=== PATIENT | male | born 1990 | race Caucasian/White ===

== ENCOUNTER 2017-11-18 05:59 | Emergency (ER) | payer BC, SELFPAY ==
[2017-11-18 06:01] VITALS: BP 127/73; RESP 16; TEMP 36.8; O2SAT 97; BMI 34.4
--- NOTE | 2017-11-18 07:07 | ED.VISSUMM ---
- ER Visit Summary Date of Service: 11/18/17 Chief Complaint: Eye pain History of Present Illness: The patient is a 26 M has bilateral eye pain. Started yesterday. He noted some redness. He has some cloudy vision of both eyes to. He started wearing contact lenses last week. He has them out at this time. He denies any fever. No crusting of the eyes. He has no injuries. Physical Examination: Vital signs reviewed. Bilateral eye exam reveals diffuse injection. Extraocular motions are intact without pain. His pupils are equally round and reactive. Funduscopic exam is normal. Test Results: None indicated Emergency Department Course and Treatment: Tetracaine and fluorescein was instilled in each eye. There was no dye uptake. There are no ulcers. Patient looks like to have conjunctivitis of each eye. Treatment Plan: He will be given erythromycin ophthalmic for each eye. 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 It may contain incorrect words, spelling, and punctuation that were not noted in review of the chart prior to signing ED Disposition - Plan for ED Patient: Chief Complaint: Eye Problem Referrals: Care Physician,No Primary [Primary Care Provider] -
--- NOTE | 2017-11-18 07:08 | ED.DEP ---
ED Disposition - Plan for ED Patient: Disposition: Home or Assisted Living Chief Complaint: Eye Problem Instructions: ED Conjunctivitis Bacterial Prescriptions: Erythromycin Ophthalmic 1 applic EACH EYE 4X/DAY #1 opth.tube Referrals: Care Physician,No Primary [Primary Care Provider] -
[2017-11-18] MEDS: Erythromycin Base 1 OPTH.TUBE 1 APPLIC EACH EYE (07:42)
[2017-11-18 07:44] VITALS: RESP 18; O2SAT 98
== END 2017-11-18 07:45 | disposition home or self-care (01) ==
PROVIDERS: Emergency Provider Emergency Medicine
DX: H10.89 Other conjunctivitis (principal); Z72.0 Tobacco use
CPT/HCPCS: 99282

== ENCOUNTER 2018-01-22 08:33 | Emergency (ER) | payer BC, SELFPAY ==
[2018-01-22 08:34] VITALS: BP 138/87; PULSE 77; RESP 16; TEMP 36.7; O2SAT 100; BMI 35.5
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
[2018-01-22] MEDS: Naproxen 500 MG Tablet PO (08:52)
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
[2018-01-22 09:50] VITALS: PULSE 81; RESP 18; O2SAT 98
--- NOTE | 2018-01-22 09:50 | ED.RN ---
THIS NURSE REVIEWED D/C INSTRUCTIONS WITH PT. PT VERBALIZED UNDERSTANDING OF INSTRUCTIONS. PT DENIES FURTHER NEEDS OR QUESTIONS AT THIS TIME. PT AMBULATES FROM ROOM ON OWN WITHOUT ASSISTANCE FROM STAFF
== END 2018-01-22 09:52 | disposition home or self-care (01) ==
PROVIDERS: Emergency Provider Emergency Medicine
DX: S63.502A Unspecified sprain of left wrist, initial encounter (principal); S13.4XXA Sprain of ligaments of cervical spine, initial encounter; Z72.0 Tobacco use; V49.60XA Unspecified car occupant injured in collision with unspecified motor vehicles in traffic accident, initial encounter; Y93.I9 Activity, other involving external motion; Y92.410 Unspecified street and highway as the place of occurrence of the external cause; Y99.8 Other external cause status
CPT/HCPCS: 73110; 99285

== ENCOUNTER 2021-09-03 09:39 | Emergency (ER) | payer BC, SELFPAY ==
[2021-09-03 09:39] VITALS: BP 103/80; PULSE 143; RESP 18; TEMP 36.7; O2SAT 97; BMI 35.9
--- NOTE | 2021-09-03 10:17 | EX.ED.DYSGE1 ---
HPI History of Present Illness Chief Complaint: Allergic Reaction Narrative Narrative: Patient is a 30-year-old male who states on Friday he used a new body wash. He states Friday around 4 5 in the afternoon he noticed some mild redness and rash to his body. He states that the redness/rash has worsened since his onset and he had concerned that he may have difficulty breathing from this and therefore presents for evaluation. Other than the new body wash he denies any new exposures and states no one else at home has the rash. PFSH PFS Medical History (Updated 09/03/21 @ 10:[address] Bryon Thrasher, DO) Anxiety Depression Home Medications duloxetine 60 mg capsule,delayed release 60 mg PO DAILY #30 cap 10/17/18 [Rx Last Taken Unknown] famotidine [Pepcid] 40 mg PO DAILY #7 tab 09/03/21 [Rx Last Taken Unknown] omeprazole 40 mg PO DAILY 09/03/21 [History Last Taken Unknown] prednisone 40 mg PO DAILY #14 tab 09/03/21 [Rx Last Taken Unknown] Allergy/AdvReac Type Severity Reaction Status Date / Time No Known Allergies Allergy Verified 09/03/21 09:41 Family History Other Depression Social History (Updated 10/20/18 @ 12:59 by Leena Felix NP, TRANSFER SPECIALIST-C) Smoking Status: Never smoker ROS ROS ED Constitutional Constitutional ED: Denies chills or fever(s) ENT ENT ED: Denies sore throat Cardiovascular Cardiovascular: Denies chest pain Respiratory/Chest Respiratory/Chest: Denies cough or dyspnea Gastrointestinal Gastrointestinal: Denies abdominal pain, diarrhea, nausea or vomiting Genitourinary Genitourinary ED: Denies dysuria Musculoskeletal Musculoskeletal: Denies myalgias Integumentary Reports rash Neurologic Neurologic: Denies headache(s) Allergic/Immunologic Allergic/Immunologic ED: Reports urticaria; Denies mouth swelling or tongue swelling EXAM Physical Exam Const Vital Signs: 09/03/21 09:39 Temperature 98.1 F Temperature Source Temporal Pulse Rate 143 H Respiratory Rate 18 Blood Pressure 103/80 Blood Pressure Mean 87 Pulse Ox 97 Oxygen Delivery Method Room Air Positive well nourished and well developed General Appearance ED: well developed HEENT Reports moist mucous membranes HEENT Narrative: No tongue or lip swelling no oral lesions no airway edema or compromise Eyes PERRL and EOMs intact bilaterally Neck supple Resp normal respiratory effort Resp Narrative: Breath sounds are slightly diminished throughout with diffuse expiratory wheeze but no signs of respiratory distress Cardio Rate: other Other Details: Tachycardic rate with regular rhythm GI normal to inspection, nondistended, normoactive bowel sounds, non-tender, non-distended and no masses Auscultation: normoactive bowel sounds Palpation: soft Extremity normal to inspection Neuro oriented x3 and CN's II-XII intact bilaterally Sensorium / Orientation: alert Motor Exam: strength 5/5 throughout Psych Mood & Affect: anxious Skin Skin Narrative: Patient has blanchable urticarial lesions extending from the top of his head down to his feet consistent with allergic reaction and no secondary changes to suggest infection MDM MDM MDM Narrative Medical decision making narrative: Patient presented to the ER tachycardic but does state he has history of anxiety and is feeling anxious. Otherwise he was afebrile normotensive and in no acute respiratory distress. His history and exam is consistent with contact dermatitis most likely from the new body wash. At this time as his rash has been present for 24 hours and has not progressed airway compromise I do not feel there is need for epinephrine or further work-up in the ER. Patient will be placed on steroids and Pepcid to help with inflammatory control but as he is in no respiratory distress is safe for discharge. Discharge Plan Triage Chief Complaint: Allergic Reaction ED Provider: Bryon Thrasher Dx/Rx/DC Orders Clinical Impression: Allergic reaction Instructions: ED Allergic Reaction Local Other Prescriptions: New prednisone 20 mg tablet 40 mg PO DAILY Qty: 14 RF: 0 famotidine [Pepcid] 40 mg tablet 40 mg PO DAILY Qty: 7 RF: 0 No Action duloxetine 60 mg capsule,delayed release(DR/EC) 60 mg PO DAILY Qty: 30 RF: 12 omeprazole 40 mg capsule,delayed release(DR/EC) 40 mg PO DAILY RF: 0 Primary Care Provider: Care Physician,No Primary Referrals: Darien Calderón MD [STAFF PHYSICIAN] - 1 Week if not improving Care Physician,No Primary [Primary Care Provider] - Disposition Disposition: Home, Self Care
[2021-09-03] MEDS: predniSONE 20 MG Tablet 40 MG PO (10:28)
[2021-09-03] MEDS: Famotidine 20 MG Tablet 40 MG PO (10:28)
== END 2021-09-03 10:41 | disposition home or self-care (01) ==
LOC: ED 10:38
PROVIDERS: Emergency Provider Emergency Medicine; PCP Family Medicine
DX: L50.0 Allergic urticaria (principal); F41.9 Anxiety disorder, unspecified; F32.A Depression, unspecified; Z79.899 Other long term (current) drug therapy
CPT/HCPCS: 99283

== ENCOUNTER 2021-09-03 15:27 | Observation (INO) | payer BC, SELFPAY ==
[2021-09-03] VITALS (10 sets, daily range): BP systolic 104–150; BP diastolic 80–94; PULSE 79–142; RESP 14–25; TEMP 36.4–37; O2SAT 93–97; BMI 35.9; BMI 35.2
--- NOTE | 2021-09-03 15:47 | EKG12_ITS ---
Test Reason : Blood Pressure : / mmHG Vent. Rate : 098 BPM Atrial Rate : 098 BPM P-R Int : 132 ms QRS Dur : 074 ms QT Int : 332 ms P-R-T Axes : 050 019 022 degrees QTc Int : 423 ms Normal sinus rhythm Normal ECG Confirmed by LYLY GREGG, BILLY ([id number]), assignment desk editor CANDIDA TORRES ([id number]) on 09/05/2021 9:39:51 AM Referred By: Confirmed By:BILLY DESOUZA MD
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
[2021-09-03] MEDS: Albuterol 2.5 MG/3 ML VIAL.NEB. INHALATION ×2 (15:55→21:15)
[2021-09-03 16:05] LABS: Absolute Lymphocyte Count 1.95 X10^3/uL (0.83-4.51); Absolute Neutrophil Count 23.1 X10^3/uL (2.0-7.7); Basophil# 0.05 X10^3/uL; Basophil% 0.2 % (0-1); Eosinophil# 0.01 X10^3/uL; Hematocrit 53.2 % (40-54); Lymphocyte # 1.95 X10^3/ul (0.83-4.51); Lymphocyte % 7.5 % (19-41); Mean Corp Hgb Conc 33.8 g/dL (32-36); Mean Corpuscular Hgb 30.6 pg (27.0-32.0); Mean Corpuscular Volume 90.3 fL (80-94); Mean Platelet Vol. 10.8 fl (6.2-12.0); Monocyte# 0.68 X10^3/uL; Monocyte% 2.6 % (0-10); NRBC Flagged by Analyzer 0 % (0-5); Neutrophil # 23.13 X10^3/uL (2.7-7.7); Neutrophil % 88.7 % (47-70); POSITIVE DIFFERENTIAL YES; Platelet Count 415 K/mm3 (150-450); RBC Distribution Width CV 12.8 % (11.6-14.6); Red Blood Count 5.89 M/mm3 (4.6-6.2); White Blood Count 26.1 K/mm3 (4.4-11.0)
[2021-09-03 16:09] LABS: Differential Indicated SCAN CRITERIA MET
[2021-09-03] MEDS: 0.9% Normal Saline 1,000 ML 1000 ML IV (16:10)
--- NOTE | 2021-09-03 16:15 | RAD_ITS ---
EXAM: XR CHEST, 1 VIEW CLINICAL INDICATION: dyspnea TECHNIQUE: Frontal view of the chest. This report was created using Gaud[employer] report generation technology. COMPARISON: None. FINDINGS: LUNGS AND PLEURAL SPACES: Unremarkable. No consolidation or edema. No pneumothorax. No effusion. HEART: Unremarkable. Cardiac silhouette not enlarged. MEDIASTINUM: Central airways and mediastinal contour are unremarkable. BONES/JOINTS: Unremarkable. SOFT TISSUES: Unremarkable. RAD/Chest 1 View (Portable) IMPRESSION: No radiographic evidence of acute cardiopulmonary disease. Electronically Signed: Ricco Cooper MD at 16:25 EST , Service support ,
[2021-09-03 16:24] LABS: D-Dimer Quantitative (DVT/PE) 18.38 FEU/ug/m (0.27-0.49)
[2021-09-03 16:29] LABS: AST(SGOT) 20 U/L (15-37); Alanine Aminotransfer ALT/SGPT 41 U/L (16-61); Albumin, Serum 3.6 g/dL (3.2-5.0); Alkaline Phosphatase 93 U/L (45-117); Anion Gap 8 (5-15); BUN 21 mg/dL (7-18); BUN/Creat Ratio 21.6 RATIO (10-20); Calcium,Total 8.5 mg/dL (8.5-10.1); Chloride 111 mmol/L (98-107); Creatinine, Serum 0.97 mg/dL (0.70-1.30); Differential Comment SCANNED; EST Glomerular Filtration Rate 97 mL/min (>60); Est Glom Filt Rate - Afr Amer 117 mL/min (>60); Estimated Creatinine Clearance 116.02 ml/min; Globulin 3.6 g/dL (2.2-4.2); Glucose 208 mg/dL (74-106); Potassium 3.8 mmol/L (3.5-5.1); Protein, Total 7.2 g/dL (6.4-8.2); Sodium Level 138 mmol/L (136-145); Troponin-I HS 10 pg/mL (3.0-78.0)
--- NOTE | 2021-09-03 16:38 | CT_ITS ---
EXAM: CT ANGIOGRAPHY CHEST WITHOUT AND WITH INTRAVENOUS CONTRAST CLINICAL INDICATION: pulmonary embolism TECHNIQUE: Helically acquired angiography images were obtained of the chest without and with intravenous contrast. This CT exam was performed using one or more of the following dose reduction techniques: automated exposure control, adjustment of the mA and/or kV according to patient size, and/or use of iterative reconstruction technique. This report was created using Direct Hit report generation technology. MIP reconstructed images were created and reviewed. CONTRAST: IV 100mL [id number] COMPARISON: None. FINDINGS: PULMONARY ARTERIES: Unremarkable. Normal in caliber. No evidence of pulmonary embolism. AORTA: Unremarkable. Normal in caliber. No evidence of dissection. GREAT VESSELS OF AORTIC ARCH: Unremarkable. Normal in caliber. No evidence of dissection. LUNGS AND PLEURAL SPACES: Unremarkable. No mass. No consolidation or edema. No pleural effusion or thickening. No pneumothorax. HEART: Unremarkable. Heart size is normal. No pericardial effusion. No signs of right heart strain, ratio of right ventricle to left ventricle measures less than 1. MEDIASTINUM: Unremarkable. No mediastinal or hilar adenopathy. Esophagus is unremarkable. No hiatal hernia. THYROID: Unremarkable. No thyroid lesions. BONES/JOINTS: Unremarkable. No suspicious lytic or blastic abnormality. CT/CTA Chest W/WO Contrast IMPRESSION: Negative CTA chest. Electronically Signed: Ricco Cooper MD at 17:15 EST , Service support ,
[2021-09-03 16:43] LABS: Bacteria 0 SEEN /hpf (None Seen); Mucous, Urine 0 SEEN /hpf (<or=2+); Red Blood Cells-Urine 0 SEEN /hpf (0-5); Squamous Epithelial Cells - UA 0 SEEN /hpf (0-5)
[2021-09-03 16:46] LABS: Lactic Acid 2.2 mmol/L (0.4-1.9)
[2021-09-03 17:00] LABS: Glucose, Dipstick Normal (Normal); Ketone-Dipstick 15 mg/dl (Negative); Leukocyte Esterase-Dipstick 25 /ul (Negative); Nitrite-Dipstick Negative (Negative); Occult Blood-Urine Negative /ul (Negative); Protein-Dipstick 30 mg/dl (Negative); Urine Bilirubin Dipstick Negative (Negative); Urine Urobilinogen 1 mg/dl (Normal)
[2021-09-03] MEDS: 0.9% Normal Saline 1,000 ML 999 ML IV (17:18)
[2021-09-03 17:23] LABS: Color, Urine YELLOW (Yellow); Urine Clarity Sl Cldy (Clear)
[2021-09-03 17:26] LABS: White Blood Cells 0-5 SEEN /hpf (0-5)
[2021-09-03] MEDS: Famotidine 20 MG Tablet 40 MG PO (17:59)
[2021-09-03] MEDS: MethylPREDNISolone 125 MG/2 ML Vial IV (17:59)
[2021-09-03] MEDS: DiphenhydrAMINE 50 MG/ML Syringe 25 MG IV (17:59)
[2021-09-03] MEDS: 0.9% Normal Saline 1,000 ML 250 ML IV (18:18)
--- NOTE | 2021-09-03 19:43 | PCM.HP.STD ---
HPI - General General Date of Admission: 09/03/21 HPI Narrative NANCY DOWNS, is a 30 M with history of anxiety and depression on duloxetine was sent to ER from urgent care for generalized urticarial rash which started on Friday morning after he took shower with soap on Friday night 8?9 PM. He said he woke up Friday with itching on the chest area and then noticed hives in armpits and then it progressed to involve all body over the trunk front and back, extremities and neck area. He denies shortness of breath, swelling in the throat or difficulty in swallowing/odynophagia. As per ER physician, he also has noticed wheezing and dyspnea. Patient was given prescription of famotidine and prednisone by urgent care. Patient further said he had about 150 mg Benadryl in past 24 hours. After Solu-Medrol and famotidine Benadryl given in ER, initially his rash improved but later on it came back therefore decided to admit the patient. [facility] Medical History Anxiety Depression Home Medications duloxetine 60 mg capsule,delayed release 60 mg PO DAILY #30 cap 10/17/18 [Rx Last Taken 09/03/21] cholecalciferol (vitamin D3) 50 mcg PO DAILY 09/03/21 [History Last Taken 09/03/21] famotidine [Pepcid] 40 mg PO DAILY #7 tab 09/03/21 [Rx Last Taken Unknown] omeprazole 40 mg PO DAILY 09/03/21 [History Last Taken 09/03/21] prednisone 40 mg PO DAILY #14 tab 09/03/21 [Rx Last Taken Unknown] Allergy/AdvReac Type Severity Reaction Status Date / Time No Known Allergies Allergy Verified 09/03/21 15:29 Family History Other Depression Surgical History History of appendectomy Social History Smoking Status: Never smoker substance use type: does not use ROS ROS Narrative Constitutional: Denies fatigue and weakness. HEENT: Reports systems reviewed and no addt'l complaints, except as documented Respiratory/Chest: Mild wheezing. Denies chest pain, shortness of breath at rest or with exertion Gastrointestinal: Denies coffee ground emesis, hematemesis or vomiting Genitourinary: Denies burning urination or new urinary tract symptoms Musculoskeletal: Reports joint pain and limited range of motion Neurologic: Denies seizure-like activity skin: Generalized redness and hives all over the body. Endocrinology: Reports systems reviewed and no addt'l complaints, except as documented Hematologic/Lymphatic: Reports systems reviewed and no addt'l complaints, except as documented Psychiatric: Anxiety and depression Rest 12 ROS are negative except as mentioned in HPI Vital Signs Vital Signs Vital Signs: 09/03/21 15:27 09/03/21 15:38 09/03/21 15:47 Temperature 97.5 F L Temperature Source Temporal Pulse Rate 112 H 120 H Pulse Rate [Standing] 142 H Respiratory Rate 16 14 Respiratory Effort Normal Non-Labored Respiratory Pattern Normal Blood Pressure 120/80 140/94 H Blood Pressure [Sitting] 140/94 H Blood Pressure [Standing] 104/81 H Blood Pressure Mean 93 109 Blood Pressure Mean [Sitting] 109 Blood Pressure Mean [Standing] 88 Pulse Ox 97 96 Oxygen Delivery Method Room Air Room Air 09/03/21 15:48 09/03/21 15:56 09/03/21 16:16 Temperature 98.2 F Temperature Source Oral Pulse Rate 117 H 112 H 103 H Pulse Rate [Standing] Respiratory Rate 20 H 19 H 25 H Respiratory Effort Respiratory Pattern Tachypnea Blood Pressure 123/87 H 123/87 H Blood Pressure [Sitting] Blood Pressure [Standing] Blood Pressure Mean 99 99 Blood Pressure Mean [Sitting] Blood Pressure Mean [Standing] Pulse Ox 96 93 Oxygen Delivery Method Room Air Room Air 09/03/21 18:09 09/03/21 18:39 Temperature 98.6 F Temperature Source Oral Pulse Rate 79 82 Pulse Rate [Standing] Respiratory Rate 21 H 20 H Respiratory Effort Respiratory Pattern Blood Pressure 150/81 H 150/81 H Blood Pressure [Sitting] Blood Pressure [Standing] Blood Pressure Mean 104 104 Blood Pressure Mean [Sitting] Blood Pressure Mean [Standing] Pulse Ox 97 96 Oxygen Delivery Method Room Air Room Air Weight Weight: 245 lb 9.519 oz Body Mass Index (BMI) 35.2 Physical Exam Narrative General: Alert, Oriented x3, Cooperative. Morbid obesity BMI 35.2 kg/m? HEENT: Atraumatic, PERRLA, EOMI, Normocephalic. No cervical lymphadenopathy Oral: No swelling of mucosa of mouth and oropharynx. Neck: Supple, No JVD, Negative Carotid Bruits Lungs: Air entry diminished in bilateral lung bases. Mild bilateral expiratory wheezing. Cardiovascular: Regular rate, Regular Rhythm, Normal S1, Normal S2, No murmurs Abdomen: Bowel Sounds Present, Soft, Non Tender, Non-Distended : No renal angle tenderness. No suprapubic tenderness. Extremities: No edema, Capillary Refill Less than 3 Seconds Skin: Generalized hives, urticarial rash over trunk, extremities and back of neck. Musculoskeletal: No Tenderness to Palpation of Joints or Extremities Neurological: Cranial nerves II-XII grossly intact, DTR 2+/4 and Symmetrical, Neuro grossly intact Psych/Mental Status: Normal Affect, Appropriate. Results Lab / Micro Data Result Diagrams: 09/03/21 15:55 09/03/21 15:55 Labs: Laboratory Results - last 24 hr 09/03/21 15:55: WBC 26.1 H, RBC 5.89, Hgb 18.0 H*, Hct 53.2, MCV 90.3, MCH 30.6, MCHC 33.8, RDW Std Deviation 42.0, RDW Coeff of Jaxon 12.8, Plt Count 415, MPV 10.8, Immature Gran % (Auto) 1.000 H, Neut % (Auto) 88.7 H, Lymph % (Auto) 7.5 L, [place] % (Auto) 2.6, Eos % (Auto) 0.0, Baso % (Auto) 0.2, Absolute Neuts (auto) 23.1 H, Absolute Lymphs (auto) 1.95, Nucleated RBC % 0, Differential Comment SCANNED 09/03/21 15:55: D-Dimer Quant (PE/DVT) 18.38 H* 09/03/21 15:55: Sodium 138, Potassium 3.8, Chloride 111 H, Carbon Dioxide 19.0 L, Anion Gap 8, BUN 21 H, Creatinine 0.97, Estim Creat Clear Calc 116.02, Est GFR (MDRD) Af Amer 117, Est GFR (MDRD) Non-Af 97, BUN/Creatinine Ratio 21.6 H, Glucose 208 H, Calcium 8.5, Total Bilirubin 0.50, AST 20, ALT 41, Alkaline Phosphatase 93, Troponin I High Sens 10, Total Protein 7.2, Albumin 3.6, Globulin 3.6, Albumin/Globulin Ratio 1.0 09/03/21 16:03: Lactic Acid 2.2 H* 09/03/21 16:28: Urine Color YELLOW, Urine Clarity Sl Cldy, Urine pH 6.0, Ur Specific [place] 1.020, Urine Protein 30 H, Urine Glucose (UA) Normal, Urine Ketones 15 H, Urine Occult Blood Negative, Urine Nitrite Negative, Urine Bilirubin Negative, Urine Urobilinogen 1 H, Ur Leukocyte Esterase 25 H, Urine RBC 0 SEEN, Urine WBC 0-5 SEEN, Ur Squamous Epith Cells 0 SEEN, Urine Bacteria 0 SEEN, Urine Mucus 0 SEEN Radiology Impression Chest X-Ray 09/03/21 16:15 IMPRESSION: No radiographic evidence of acute cardiopulmonary disease. Electronically Signed: Ricco Cooper MD at 16:25 EST , Service support , Chest CTA 09/03/21 16:38 IMPRESSION: Negative CTA chest. Electronically Signed: Ricco Cooper MD at 17:15 EST , Service support , Assessment & Plan Assessment/Plan (1) Acute allergic reaction: (2) Urticaria: PLAN: 1. Acute irritative urticarial contact dermatitis from soap: Patient is being admitted on [facility] for as an observation. He is a started on IV Solu-Medrol, Benadryl and famotidine ER and will continue it. Patient has leukocytosis, elevated H&H and platelet count from 15,000. Eosinophils 0.0%. ANC elevated. Anion gap normal with elevated chloride and bicarb 19 suggestive of non-anion gap metabolic acidosis. IV fluid Ringer lactate. I think leukocytosis elevated insulin platelet probably bodies allergic manifestation. 2. Elevated D-dimer and lactic acidosis: Exact etiology unclear but patient does not have signs or symptoms of suspected infection. Patient might be dehydrated and lactic acidosis probably due to vasodilatation. 3. Anxiety and depression: Patient on duloxetine. 4. GERD: On PPI 5. Elevated glucose probably related to steroid. Full code. Charges/Coding Multi Select Codes Visit Charges Observation E&M Codin Initial observation care L3
[2021-09-03 20:05] LABS: Reflex Lactate? Y
[2021-09-03] MEDS: Lactated Ringers 1,000 ML 125 ML IV (21:02)
[2021-09-03] MEDS: Enoxaparin 40 MG/0.4 ML Syringe SC (21:03)
[2021-09-03] MEDS: DiphenhydrAMINE 25 MG Capsule 12.5 MG PO (21:05)
[2021-09-03 23:13] LABS: Lactic Acid 2.6 mmol/L (0.4-1.9)
[2021-09-04] MEDS: DiphenhydrAMINE 12.5 MG/5 ML UDC PO ×2 (02:02→08:57)
[2021-09-04 02:08] VITALS: BP 130/76; PULSE 100; RESP 17; TEMP 37; O2SAT 97
[2021-09-04] MEDS: Lactated Ringers 1,000 ML 125 ML IV (05:11)
[2021-09-04] MEDS: Famotidine 20 MG Tablet 40 MG PO (06:44)
[2021-09-04 06:51] VITALS: PULSE 105; RESP 20; O2SAT 96
[2021-09-04] MEDS: Albuterol 2.5 MG/3 ML VIAL.NEB. INHALATION ×3 (06:51→16:20)
--- NOTE | 2021-09-04 06:51 | NURSING ---
Pt became sob and c/o wheezes. resp called for a treatment. Pt looked like hives have gotten worse. Solumedrol and pepcin given early
[2021-09-04 07:52] LABS: Absolute Lymphocyte Count 2.16 X10^3/uL (0.83-4.51); Absolute Neutrophil Count 16.5 X10^3/uL (2.0-7.7); Basophil# 0.02 X10^3/uL; Basophil% 0.1 % (0-1); Hematocrit 43.1 % (40-54); Hemoglobin 14.6 g/dL (13.0-16.5); Lymphocyte # 2.16 X10^3/ul (0.83-4.51); Lymphocyte % 11.1 % (19-41); Mean Corp Hgb Conc 33.9 g/dL (32-36); Mean Corpuscular Hgb 30.9 pg (27.0-32.0); Mean Corpuscular Volume 91.3 fL (80-94); Mean Platelet Vol. 11.2 fl (6.2-12.0); Monocyte# 0.58 X10^3/uL; NRBC Flagged by Analyzer 0 % (0-5); Neutrophil # 16.51 X10^3/uL (2.7-7.7); Neutrophil % 84.6 % (47-70); Platelet Count 325 K/mm3 (150-450); RBC Distribution Width CV 12.9 % (11.6-14.6); RBC Distribution Width SD 42.5 fl (35.1-43.9); Red Blood Count 4.72 M/mm3 (4.6-6.2); White Blood Count 19.5 K/mm3 (4.4-11.0)
[2021-09-04 08:21] LABS: AST(SGOT) 16 U/L (15-37); Alanine Aminotransfer ALT/SGPT 30 U/L (16-61); Albumin, Serum 3.1 g/dL (3.2-5.0); Alkaline Phosphatase 69 U/L (45-117); Anion Gap 8 (5-15); BUN 12 mg/dL (7-18); BUN/Creat Ratio 14.8 RATIO (10-20); Calcium,Total 8.4 mg/dL (8.5-10.1); Chloride 112 mmol/L (98-107); Creatinine, Serum 0.81 mg/dL (0.70-1.30); EST Glomerular Filtration Rate 119 mL/min (>60); Est Glom Filt Rate - Afr Amer 144 mL/min (>60); Estimated Creatinine Clearance 138.94 ml/min; Globulin 3.2 g/dL (2.2-4.2); Glucose 185 mg/dL (74-106); Potassium 3.5 mmol/L (3.5-5.1); Protein, Total 6.3 g/dL (6.4-8.2); Sodium Level 140 mmol/L (136-145)
[2021-09-04 08:52] VITALS: BP 154/87; PULSE 97; RESP 18; TEMP 36.6; O2SAT 98
[2021-09-04] MEDS: Enoxaparin 40 MG/0.4 ML Syringe SC (09:00)
[2021-09-04] MEDS: Pantoprazole Sodium 40 MG Tablet PO (09:00)
[2021-09-04] MEDS: 0.9% Saline Lock 10 ML Syringe IV ×2 (10:41→13:37)
[2021-09-04] MEDS: Ondansetron 4 MG/2 ML Vial IV (10:41)
[2021-09-04 10:56] VITALS: PULSE 110; RESP 19
[2021-09-04 12:24] LABS: Pathologist Review Reviewed
[2021-09-04] MEDS: Cholecalciferol (VIT D3) 25 MCG TABLET (1,000 UNITS) 50 MCG PO (13:36)
[2021-09-04] MEDS: DiphenhydrAMINE 12.5 MG/5 ML UDC 25 MG PO ×2 (13:36→18:04)
[2021-09-04 16:21] VITALS: PULSE 130; RESP 22
--- NOTE | 2021-09-04 17:01 | PCM.DC ---
Discharge Instructions Diet Discharge Diet: No restrictions Activity Discharge Activity: Return to Normal Activity Weight Bearing Status: Full weight bearing Follow Up Care Test Results: Test results from this visit will be discussed in further detail at your follow-up appointment, if applicable. Discharge Plan Admission Admit Date/Time: 09/03/21 19:36 Primary Reason for Your Visit: rhinovirus tracheobronchitis, viral rash Attending Provider: Pankaj Warren Primary Care Provider: Marin Silvestre Discharge Orders/Prescriptions Prescriptions: New albuterol sulfate [ProAir HFA] 90 mcg/actuation HFA aerosol inhaler 2 puff inhalation .QID Qty: 8.5 RF: 0 prednisone 20 mg tablet 20 mg PO BID Qty: 9 RF: 0 Continued duloxetine 60 mg capsule,delayed release(DR/EC) 60 mg PO DAILY Qty: 30 RF: 12 omeprazole 40 mg capsule,delayed release(DR/EC) 40 mg PO DAILY RF: 0 Discontinued prednisone 20 mg tablet 40 mg PO DAILY Qty: 14 RF: 0 famotidine [Pepcid] 40 mg tablet 40 mg PO DAILY Qty: 7 RF: 0 cholecalciferol (vitamin D3) 50 mcg (2,000 unit) Tablet,Chewable 50 mcg PO DAILY RF: 0 prasugrel 10 mg Tablet 10 mg PO DAILY RF: 0 alprazolam [Xanax] 1 mg Tablet 1 mg PO TID PRN (Reason: Anxiety) RF: 0 tizanidine 4 mg Tablet 4 mg PO Q6H RF: 0 Referrals / Follow Up: Marin Silvestre MD [Primary Care Provider] - Within 2 Weeks Disposition Disposition (needs filled in before D/C Order can be placed): Home, Self Care
[2021-09-04 17:49] VITALS: BP 149/96; PULSE 132; RESP 18; TEMP 36.5; O2SAT 95
--- NOTE | 2021-09-04 20:19 | DS.PCM_ITS ---
Providers Date of Admission: 09/03/21 Date of Discharge: 09/04/21 Primary Care Physician: Dr. Marin Silvestre MD Reason For Visit: GENERALIZED RASH Diagnosis Discharge Diagnosis (1) Acute allergic reaction: Status: Acute Code(s): T78.40XA - Allergy, unspecified, initial encounter (2) Urticaria: Status: Acute Code(s): L50.9 - Urticaria, unspecified Plan: Final diagnosis #1 viral exanthem due to rhinovirus #2 rhinovirus tracheobronchitis #3 chronic depression #4 GERD Medications at Discharge Home Medications duloxetine 60 mg capsule,delayed release 60 mg PO DAILY #30 cap 10/17/18 omeprazole 40 mg PO DAILY 09/03/21 albuterol sulfate [ProAir HFA] 2 puff INHALATION .QID #8.5 g 09/04/21 prednisone 20 mg PO BID #9 tab 09/04/21 Hospital Course Operations None Procedures None Summary of Care Provided Minutes Spent on Discharge: 30 Hospital Course: This 30-year-old white male was seen in the emergency room at [facility] with a chief complaint of diffuse rash over his legs, chest, and arms. Plaint of feeling lightheaded and nauseous, he went to an urgent care for evaluation and subsequently went to the emergency room for evaluation. He returned to the emergency room at [facility] the same day with complaints of nausea and lightheadedness. Lab work obtained in the emergency room showed an elevated white blood cell count of 19.5, his lactic acid was noted to be elevated at 2.2, D-dimer was elevated at 26.1. CTA of the chest was performed and found to be normal. Patient was noted to be tachycardic in the emergency room and was given fluids, when the ER doc return to evaluate the patient, patient's tachycardia was resolved but his rash appeared to be worse. Patient was given Benadryl and IV Solu-Medrol and it was decided that he would be placed in observation status on MedSurg 2. On my examination, patient had expiratory wheezes bilaterally and I felt that his rash could be secondary to a viral exanthem, I ordered a respiratory panel which resulted positive for rhinovirus. I felt that the patient had rash secondary to rhinovirus. Patient was also wheezing and he was given aerosol treatments. Patient was not hypoxic however. On 09/04/2021, patient was seen and examined: On examination he appeared in good health and spirits. Vital signs as documented. Skin warm and dry covering the patient's chest legs and parts of the patient's arms but this rash was improved from earlier in the day.. Neck without JVD, neck was supple, trachea midline, thyroid was normal. Lungs clear bilaterally, normal air movement was noted. Heart exam notable for regular rhythm, normal sounds and absence of murmurs, rubs or gallops. Abdomen unremarkable and without evidence of organomegaly, masses, or abdominal aortic enlargement. Bowel sounds are present, abdomen is not distended. Extremities nonedematous, no cyanosis was noted, no clubbing was noted. Neuro: Cranial nerves II through XII are grossly intact, no focal motor deficits were noted, sensation to light touch and pinprick intact, motor exam 5/5 throughout. Psych: Patient is alert and oriented x3, he does not appear anxious or depressed, he does not appear agitated. Was felt to be stable for discharge home on 09/04/2021. Weight / BMI Weight Weight: 111.4 kg Body Mass Index (BMI) 35.2 ABG / Lab / Microbiology Data Result Diagrams: 09/04/21 07:18 09/04/21 07:18 Laboratory: Laboratory Results - last 24 hr 09/03/21 15:55: Diff Path Review Reviewed 09/03/21 21:00: Lactic Acid 2.6 H* 09/04/21 07:18: WBC 19.5 H, RBC 4.72, Hgb 14.6, Hct 43.1, MCV 91.3, MCH 30.9, MCHC 33.9, RDW Std Deviation 42.5, RDW Coeff of Jaxon 12.9, Plt Count 325, MPV 11.2, Immature Gran % (Auto) 1.200 H, Neut % (Auto) 84.6 H, Lymph % (Auto) 11.1 L, [place] % (Auto) 3.0, Eos % (Auto) 0.0, Baso % (Auto) 0.1, Absolute Neuts (auto) 16.5 H, Absolute Lymphs (auto) 2.16, Nucleated RBC % 0 09/04/21 07:18: Sodium 140, Potassium 3.5, Chloride 112 H, Carbon Dioxide 20.0 L , Anion Gap 8, BUN 12, Creatinine 0.81, Estim Creat Clear Calc 138.94, Est GFR (MDRD) Af Amer 144, Est GFR (MDRD) Non-Af 119, BUN/Creatinine Ratio 14.8, Glucose 185 H, Calcium 8.4 L, Total Bilirubin 0.30, AST 16, ALT 30, Alkaline Phosphatase 69, Total Protein 6.3 L, Albumin 3.1 L, Globulin 3.2, Albumin/Globulin Ratio 1.0 Microbiology: Microbiology 09/04/21 10:51 Mucosa - Nasopharyngeal Respiratory Panel (PCR) - Final Rhinovirus D/C Instructions Discharge Diet: No restrictions Weight Bearing Status: Full weight bearing Meaningful Use Info Meaningful Use Diagnoses (Choose all that apply): None applicable Discharge Plan Admission Admit Date/Time: 09/03/21 19:36 Primary Reason for Your Visit: rhinovirus tracheobronchitis, viral rash Attending Provider: Pankaj Warren Primary Care Provider: Marin Silvestre Instructions Forms: Work / School Excuse Discharge Orders/Prescriptions Prescriptions: New albuterol sulfate [ProAir HFA] 90 mcg/actuation HFA aerosol inhaler 2 puff inhalation .QID Qty: 8.5 RF: 0 prednisone 20 mg tablet 20 mg PO BID Qty: 9 RF: 0 Continued duloxetine 60 mg capsule,delayed release(DR/EC) 60 mg PO DAILY Qty: 30 RF: 12 omeprazole 40 mg capsule,delayed release(DR/EC) 40 mg PO DAILY RF: 0 Discontinued prednisone 20 mg tablet 40 mg PO DAILY Qty: 14 RF: 0 famotidine [Pepcid] 40 mg tablet 40 mg PO DAILY Qty: 7 RF: 0 cholecalciferol (vitamin D3) 50 mcg (2,000 unit) Tablet,Chewable 50 mcg PO DAILY RF: 0 prasugrel 10 mg Tablet 10 mg PO DAILY RF: 0 alprazolam [Xanax] 1 mg Tablet 1 mg PO TID PRN (Reason: Anxiety) RF: 0 tizanidine 4 mg Tablet 4 mg PO Q6H RF: 0 Referrals / Follow Up: Marin Silvestre MD [Primary Care Provider] - Within 2 Weeks Disposition Disposition (needs filled in before D/C Order can be placed): Home, Self Care Charges/Coding Visit Charges OBSV E&M: 46574 Observation care discharge
== END 2021-09-04 18:30 | disposition home or self-care (01) ==
LOC: ED 18:19 → MS2 20:11
PROVIDERS: Admitting Provider Internal Medicine; Emergency Provider Emergency Medicine; PCP Family Medicine; Visit Provider Internal Medicine
DX: B08.8 Other specified viral infections characterized by skin and mucous membrane lesions (principal); K21.9 Gastro-esophageal reflux disease without esophagitis; J20.6 Acute bronchitis due to rhinovirus; Z79.899 Other long term (current) drug therapy; F32.A Depression, unspecified; F41.9 Anxiety disorder, unspecified; E66.01 Morbid (severe) obesity due to excess calories; Z68.35 Body mass index [BMI] 35.0-35.9, adult; R73.9 Hyperglycemia, unspecified
CPT/HCPCS: 36415; 71045; 71275; 80053; 81001; 83605; 84484; 85025; 85379; 87040; 87633; 93005; 94640; 96361; 96372; 96374; 96375; 96376; 99218; 99251; 99285; J7030; J7120; Q9967; A4216; G0378; G0463; J2405

== ENCOUNTER 2022-02-11 18:15 | Emergency (ER) | payer BC, SELFPAY ==
[2022-02-11 18:16] VITALS: BP 147/91; PULSE 84; RESP 18; TEMP 36.8; O2SAT 96; BMI 37.0
[2022-02-11] MEDS: Oxymetazoline 0.05% 1 SPRAY SPRAY.BTL 2 SPRAY NASAL (19:44)
--- NOTE | 2022-02-11 19:46 | EX.ED.VIS.UR ---
HPI HPI - URI History of Present Illness Chief Complaint: Nosebleed Detail of Chief Complaint: Bilateral nosebleed. Informant: patient and spouse/S.O. Onset/Context/Timing Onset: Today and Hours Context: Gradual Onset Timing: Continuous Current Severity: Gone Maximum Severity: Moderate Worsened by: Not Worsened By Swallowing, Eating Solids and Drinking Liquids Associated Symptoms Associated Symptoms: Negative for Nasal Congestion Narrative Narrative: 31-year-old male gets frequent nosebleeds. Said around 510 today had spontaneous bilateral nosebleeds. Starts in about a half an hour. Denies any trauma. He is on no blood thinners. He is not on oxygen. Prior similar symptoms: Yes Recent Illness/Hospitalization: No ROS ROS ED ROS Narrative Nosebleed. Review of Systems ROS Unobtainable: Denies due to encephalopathy Constitutional Constitutional ED: Denies fever(s) Eyes Eyes: Denies change in vision ENT ENT ED: Denies ear pain Cardiovascular Cardiovascular: Denies chest pain Respiratory/Chest Respiratory/Chest: Denies dyspnea Gastrointestinal Gastrointestinal: Denies abdominal pain, diarrhea, nausea or vomiting Genitourinary Genitourinary ED: Denies dysuria Musculoskeletal Musculoskeletal: Denies myalgias Integumentary Denies rash Neurologic Neurologic: Denies headache(s) Psychiatric Psychiatric: Denies depression Endocrine Endocrinology: Denies polyuria Hematologic/Lymphatic Hematologic/Lymphatic: Denies easy bruising Allergic/Immunologic Allergic/Immunologic ED: Denies urticaria PFSH PFSH Medical History Anxiety Depression Orthostatic hypotension Urticaria Home Medications duloxetine 60 mg capsule,delayed release 60 mg PO DAILY #30 cap 10/17/18 [Rx Last Taken 09/03/21] omeprazole 40 mg PO DAILY 09/03/21 [History Last Taken 09/03/21] amoxicillin 500 mg PO BID 3 Days #6 cap 02/11/22 [Rx Last Taken Unknown] Allergy/AdvReac Type Severity Reaction Status Date / Time No Known Allergies Allergy Verified 02/11/22 18:16 Family History Other Depression Surgical History History of appendectomy Social History Smoking Status: Never smoker substance use type: does not use EXAM Physical Exam Narrative Exam Narrative: 31-year-old male no acute distress. Small blot of blood in the posterior pharynx no active bleeding. No clots. No trouble swallowing or breathing. Anterior Kesselbachs plexus on both sides of his nose there is dried blood but no active bleeding. No clots. Lungs are clear. Heart regular rhythm. Skin no bruising. Otherwise exam unremarkable. Const Vital Signs: 02/11/22 18:16 Temperature 98.2 F Temperature Source Temporal Pulse Rate 84 Respiratory Rate 18 Blood Pressure 147/91 H Blood Pressure Mean 109 Pulse Ox 96 Oxygen Delivery Method Room Air Positive well nourished and well developed; Negative for cachectic or contractures General Appearance ED: well developed and NAD; Negative for cachectic, contractures, cyanotic, diaphoretic or pallor Nutritional Appearance: Negative for cachectic HEENT Reports moist mucous membranes HEENT Narrative: Small amount of blood in posterior pharynx. No clots. No active bleeding. normocephalic and atraumatic Eyes PERRL and EOMs intact bilaterally General Eye ED: Negative for pale conjunctiva or scleral icterus Neck no lymphadenopathy, supple, no meningeal signs and no JVD General: Negative for anterior neck swelling or lymphadenopathy Resp normal respiratory effort and clear to auscultation bilaterally Auscultation: Negative for rales, rhonchi or wheezes Cardio S1 normal heart sound, S2 normal heart sound and no murmurs Rate: regular rate Rhythm: regular rhythm GI non-tender, non-distended and no masses Inspection: Negative for abdominal distention Auscultation: normoactive bowel sounds Palpation: soft; Negative for tender or guarding Back/Spine no CVA tenderness and normal ROM General Back: Negative for CVA tenderness Cervical Spine: Negative for cervical spine tenderness Thoracic Spine / Upper Back: Negative for thoracic spinal tenderness Extremity normal to inspection and full ROM General Extremety ED: Negative for cyanosis or tenderness General Extremity: Negative for cyanosis Neuro oriented x3 Sensorium / Orientation: alert, oriented to person, oriented to place and oriented to time; Negative for orientation impaired, lethargic or stuporous Motor Exam: strength 5/5 throughout Psych mental status grossly normal Attitude: No agitated Mood & Affect: Negative for depressed or tearful Skin General Skin Exam: Negative for jaundice or pallor Lesions: no lesions Rashes: no rashes MDM MDM MDM Narrative Medical decision making narrative: Patient with bilateral anterior epistaxis. Afrin soaked cotton balls in place in both sides of his nose and anterior Merocel packs. To be discharged to home on amoxicillin 3 times daily for 3 days. Packings pulled out in 3 days. Follow-up with ENT as needed. Return if worse. Discharge Plan Triage Chief Complaint: Nosebleed ED Provider: Douglas Robison Dx/Rx/DC Orders Clinical Impression: Acute anterior epistaxis Instructions: ED Epistaxis (Adult) Prescriptions: New amoxicillin 500 mg capsule 500 mg PO BID 3 Days Qty: 6 RF: 0 No Action duloxetine 60 mg capsule,delayed release(DR/EC) 60 mg PO DAILY Qty: 30 RF: 12 omeprazole 40 mg capsule,delayed release(DR/EC) 40 mg PO DAILY RF: 0 Primary Care Provider: Marin Silvestre Referrals: Marin Silvestre MD [Primary Care Provider] - Miguel Duke MD [STAFF PHYSICIAN] - 3-5 Days Activity Restrictions/Additional Instructions: Remove the nasal packings in 3 days which should be either night or Friday morning. If it rebleeds hold direct pressure 20 to 30 minutes if unable to stop return. While the packings are in you take amoxicillin twice a day for the next 3 days to prevent a sinus infection. Return if worse. Follow-up with ENT as needed. Disposition Disposition: Home, Self Care
[2022-02-11] MEDS: AMOXICILLIN 500 MG CAPSULE PO (20:37)
--- NOTE | 2022-02-11 21:47 | SUR.HOLD ---
upon initial d/c, pt walked outside and sneezed causing packing to fall out. dr. edmondson inserted another packing. 4x4 rolled and taped under nostrils.
== END 2022-02-11 20:39 | disposition home or self-care (01) ==
PROVIDERS: Emergency Provider Emergency Medicine; PCP Family Medicine; Visit Provider Emergency Medicine
DX: R04.0 Epistaxis (principal)
CPT/HCPCS: 30901; 99283; A4216